=== PATIENT | female | born 1965 | race African-American/Black ===

== ENCOUNTER → 2016-10-14 | Outpatient (CLI) | payer BC ==
[2016-02-29 08:13] VITALS: BP 139/88
[~2016-10-14] MED LIST: CYCL5TAB PO; DOCU-27 PO; IBUP-1060 PO; OXYC-323 PO
--- NOTE | 2016-10-14 09:19 | KCIC ---
PROCEDURE Bilateral digital screening mammogram. HISTORY 51-year-old female presents for screening mammography. TECHNIQUE Full field digital craniocaudal, exaggerated craniocaudal and mediolateral oblique views of both breasts were obtained. Computer-aided detection is applied. COMPARISON None. This is a baseline mammogram. FINDINGS Breast parenchymal composition: Level C - Heterogeneously dense. There is nodularity within the subareolar aspect of the right breast, possibly due to dilated ducts. There is no suspicious calcification or architectural distortion within either breast. IMPRESSION BI-RADS Category 0: Needs additional imaging. Further evaluation with a a right breast sonogram targeted to the subareolar location is recommended given the absence of prior studies to confirm stability. The patient will be contacted to return for additional imaging. This study was interpreted with the benefit of Computerized Aided Detection (CAD). Mammography is not 100% sensitive in detecting breast cancer. Therefore, a self breast exam and a clinical breast exam are very important. A negative mammogram does not negate a clinically suspicious finding and should not result in a delay in biopsying a clinically suspicious abnormality. Electronically signed by: Hollie Colunga (October 14, 2016 09:18:08)
== END | disposition home or self-care (01) ==
LOC: KCIC MAMMO 07:57
PROVIDERS: ATTEND Family Medicine
DX: Z12.31 Encounter for screening mammogram for malignant neoplasm of breast (principal)
CPT/HCPCS: G0202; 77067

== ENCOUNTER → 2016-10-26 | Outpatient (CLI) | payer BC ==
[2016-02-29 08:13] VITALS: BP 139/88
--- NOTE | 2016-10-26 13:23 | KCIC ---
Right breast ultrasound: Reason for examination: Nodularity in the subareolar position of the right breast on screening mammogram. Comparison is made to mammographic exam dated 10/14/2016. Ultrasound examination was performed of the right breast with attention to the retroareolar area. There is ductal ectasia. No intraductal lesions are seen. No solid lesions are seen. No abnormal lymph nodes are seen in the right axilla. Impression: Ductal ectasia in the subareolar position without focal solid nodules. Recommend routine mammographic followup. BI-RADS category 2: Benign. This patient's information has been entered into a reminder system for the patient to be notified with the results of this examination and a target date for her next mammograms. Electronically signed by: Madonna Sommer MD (October 26, 2016 13:22:40)
== END | disposition home or self-care (01) ==
LOC: KCIC MAMMO 12:36
PROVIDERS: ATTEND Family Medicine
DX: R92.8 Other abnormal and inconclusive findings on diagnostic imaging of breast (principal)
CPT/HCPCS: 76641

== ENCOUNTER → 2017-06-13 | Outpatient (CLI) | payer BC | END | disposition home or self-care (01) | LOC: KCIC 11:16 | DX: M70.62 Trochanteric bursitis, left hip (principal); M70.61 Trochanteric bursitis, right hip; M25.851 Other specified joint disorders, right hip; Y93.89 Activity, other specified | CPT/HCPCS: 73502; 73521 ==

== ENCOUNTER → 2019-07-31 | Outpatient (CLI) | payer BC ==
[2016-02-29 08:13] VITALS: BP 139/88
[~2019-07-31] MED LIST changes: +DOCU-109 PO; -DOCU-27 PO; -OXYC-323 PO; +OXYC1TAB15 PO
--- NOTE | 2019-07-31 17:34 | KCIC ---
Bilateral digital screening mammograms with 3-D tomosynthesis: Reason for examination: Routine screening. Comparison is made to previous study dated 10/14/2016. Bilateral mammograms in CC and oblique projections were obtained with 2-D imaging and 3-D tomosynthesis imaging on a Siemens Inspiration unit and reviewed on the workstation. Interpretation was made with the benefit of CAD. The skin and nipples show no abnormalities. No abnormal axillary lymph nodes are seen. The breast parenchyma is heterogeneously dense. (Breast density: Category C.) There appear to be dilated ductal structures in the lateral breasts bilaterally. There is also however suggestion of a small nodular density in the right breast anteriorly at approximately the 11:30 position. There also appears to be a nodular density posterior laterally at approximately the 3:00 C position of the left breast. Further evaluation with ultrasound should be considered. There are no other dominant masses, suspicious calcifications or architectural distortion. Impression: Nodular density seen anteriorly in the right breast at approximately the 11:30 position anteriorly. Nodular density posterior laterally at approximately the 3:00 C position of the left breast. Recommend further evaluation with ultrasound.. Your patient's mammogram demonstrates that she has dense breast tissue (breast density category C or D), which could hide abnormalities, and if she has other risk factors for breast cancer that have been identified, she might benefit from supplemental screening tests that may be suggested by you as her ordering physician. Dense breast tissue, in and of itself, is a relatively common condition. Therefore, this information is not provided to cause undue concern, but rather to raise your awareness and to promote discussion with your patient regarding the presence of other risk factors, in addition to dense breast tissue. Your patient's mammography results will be sent to her. BI-RAD Category 0: Incomplete. Needs additional imaging evaluation. "Our facility is accredited by the [employer] Mammography [employer]." This patient's information has been entered into a reminder system for the patient to be notified with the results of her examination and a target date for the next mammogram. Electronically signed by: Meri Sommer MD (07/31/2019 5:32 PM) [id number]
== END | disposition home or self-care (01) ==
LOC: KCIC MAMMO 13:20
PROVIDERS: ATTEND Family Medicine
DX: Z12.31 Encounter for screening mammogram for malignant neoplasm of breast (principal)
CPT/HCPCS: 77063; 77067

== ENCOUNTER → 2019-08-12 | Outpatient (CLI) | payer BC, OTHER ==
[2016-02-29 08:13] VITALS: BP 139/88
--- NOTE | 2019-08-12 10:29 | KCIC ---
Bilateral breast ultrasound: Reason for examination: Nodular densities on screening mammogram. Comparison is made to mammographic exam dated 07/31/2019 and previous ultrasound examination of the right breast dated 10/26/2016. Bilateral breast ultrasound was performed in the areas of mammographic concern and axillary regions of both breasts. In the right breast, there is some cystic ductal ectasia in the retroareolar position. In the 10:00 position 4 cm from the nipple, there is a 9.4 mm hypoechoic lesion in parallel orientation consistent with a benign fibrocystic/fibroadenomatous type nodule. In the 10:00 position 7 cm from the nipple, there is a 8.4 mm hypoechoic circumscribed lesion in parallel orientation also probably representing a fibroadenoma. No suspicious-appearing nodules are seen. No abnormal appearing lymph nodes are seen in the right axilla. In the left breast, there is a 1 cm hypoechoic circumscribed nodule in parallel orientation at the 3:00 position 7 cm from the nipple which may represent a fibroadenoma. There is cystic ductal ectasia in the retroareolar position. No abnormal appearing lymph nodes are seen in the axilla. IMPRESSION: Circumscribed nodular lesions in parallel orientation in the right breast at the 10:00 position 4 cm from the nipple and at the 10:00 position 7 cm from the nipple and in the left breast at the 3:00 position 7 cm from the nipple. These likely represent fibrocystic/fibroadenomatous nodules. Recommend however reevaluation with bilateral breast ultrasound in 6 months. BI-RADS Category 3: Probably Benign. "Our facility is accredited by the [employer] Mammography [employer]." This patient's information has been entered into a reminder system for the patient to be notified with the results of her examination and a target date for the next mammogram. Electronically signed by: Meri Sommer MD (08/12/2019 10:26 AM) [email or web address]
== END | disposition home or self-care (01) ==
LOC: KCIC US 07:46
PROVIDERS: ATTEND Family Medicine
DX: N63.11 Unspecified lump in the right breast, upper outer quadrant (principal); N63.21 Unspecified lump in the left breast, upper outer quadrant
CPT/HCPCS: 76641